=== PATIENT | female | born 1985 | race Caucasian/White ===

== ENCOUNTER 2017-06-10 16:04 | Emergency (ER) | payer SELFPAY ==
[~2017-06-10] VITALS: Ht 165.1 cm; Wt 77.1 kg
[2017-06-10 16:08] VITALS: Ht 165.1 cm; Wt 77.1 kg
[2017-06-10 17:19] VITALS: BP 133/81
== END 2017-06-10 17:19 | disposition home or self-care (01) ==
LOC: ED 16:04
DX: F41.0 Panic disorder [episodic paroxysmal anxiety] (principal); F17.210 Nicotine dependence, cigarettes, uncomplicated; R06.4 Hyperventilation; Z71.6 Tobacco abuse counseling
CPT/HCPCS: 82962; 99406